=== PATIENT | female | born 1940 | race Two or more races ===

== ENCOUNTER 2022-08-08 05:37 | Observation (INO) ==
--- NOTE | 2022-07-06 16:23 | PAT Medication Instructions ---
Medication Instructions Date of Service July 06, 2022 Home Medications atorvastatin 20 mg tablet 20 mg PO QAM cholecalciferol (vitamin D3) 25 mcg (1,000 unit) tablet (Vitamin D3) 25 mcg PO QAM citalopram 10 mg tablet 10 mg PO QAM cyanocobalamin (vitamin B-12) 500 mcg tablet 500 mcg PO QAM docusate sodium 100 mg capsule (Stool Softener) 100 mg PO Q2D estradiol 0.01% (0.1 mg/gram) vaginal cream 1 appful vaginal Q2D fiber 1 cap PO WM 07/06/22 [History Confirmed 07/06/22] gabapentin 300 mg capsule 600 mg PO HS lactobacillus combination no.4 3 billion cell capsule (Probiotic) 3,000 mmu cells PO QAM lisinopril 10 mg tablet 10 mg PO QAM meloxicam 7.5 mg tablet (Mobic) 7.5 mg PO QAM ASK your surgeon for instructions meloxicam 7.5 mg tablet (Mobic) 7.5 mg PO QAM DO NOT take the morning of surgery cholecalciferol (vitamin D3) 25 mcg (1,000 unit) tablet (Vitamin D3) 25 mcg PO QAM cyanocobalamin (vitamin B-12) 500 mcg tablet 500 mcg PO QAM docusate sodium 100 mg capsule (Stool Softener) 100 mg PO Q2D estradiol 0.01% (0.1 mg/gram) vaginal cream 1 appful vaginal Q2D lactobacillus combination no.4 3 billion cell capsule (Probiotic) 3,000 mmu cells PO QAM lisinopril 10 mg tablet 10 mg PO QAM Take morning of surgery With a small sip of water, OTHERWISE NOTHING TO EAT OR DRINK AFTER MIDNIGHT: atorvastatin 20 mg tablet 20 mg PO QAM citalopram 10 mg tablet 10 mg PO QAM Take evening before surgery gabapentin 300 mg capsule 600 mg PO HS Other Notes If you have any questions please call us at [phone] or [phone] or [phone] or [phone]
--- NOTE | 2022-07-14 13:39 | History & Physical Report ---
Date of Service July 14, 2022 date of surgery: 08/08/22 Procedure: Right Total Knee Arthroplasty Surgeon: Mansoor Ley Assessment & Plan (1) Arthritis of right knee: Plan: Risks and benefits of procedure discussed in detail today, patient would like to proceed with a and Nephew patient matched Right total knee replacement at [facility] as scheduled. will obtain medical clearance from Dr Knapp prior to surgery as well as obtain PATs at [facility]. Will place on ASA 81mg po bid x 1 month post op, f/u 2 weeks post op for routine post-operative care and x-ray, sooner if having any problems. will make arrangements for HHPT at the time of discharge. At this point in time, has failed conservative measures and would like to proceed with surgical intervention. The risks and benefits have been discussed including, but not limited to, risk of infection, nerve injury, stiffness, loss of motion, failure to improve, etc. Reasonable outcomes and options of treatment were discussed. An explanation of appropriate alternatives to the procedure that may be advantageous were discussed and their risks and benefits, as well as the risks and benefits of not proceeding with treatment. I offered to answer any additional inquiries concerning the treatment involved. All the patient's questions were answered. The patient is agreeable, understanding of the treatment plan and alternatives, and wishes to proceed with the treatment plan. History of Present Illness Chief Complaint: Right knee pain Primary Care Provider: NO PCP Jasvir is a pleasant 82-year-old female who presents for preop evaluation prior to right total knee replacement. She has been having pain in this knee for many years now which is gradually worsened, is now affecting her daily activities. She tried oral anti-inflammatories and Tylenol without relief. She had previous viscosupplementation injections with mild relief. She rates her current pain as a 7 out of 10. She has complaints of limping instability and catching in her knee. X-rays reviewed with patient which show advanced generative change of the right knee, she is failed conservative measures like to proceed with a right total knee replacement Allergies Allergy/AdvReac Type Severity Reaction Status Date / Time Sulfa (Sulfonamide Allergy Mild Rash Verified 07/06/22 13:18 Antibiotics) latex Allergy MILD Verified 07/06/22 13:18 Home Medications Medication Instructions Recorded Confirmed Type atorvastatin 20 mg tablet 20 mg PO QAM 07/06/22 07/06/22 History cholecalciferol (vitamin D3) 25 25 mcg PO QAM 07/06/22 07/06/22 History mcg (1,000 unit) tablet (Vitamin D3) citalopram 10 mg tablet 10 mg PO QAM 07/06/22 07/06/22 History cyanocobalamin (vitamin B-12) 500 500 mcg PO QAM 07/06/22 07/06/22 History mcg tablet docusate sodium 100 mg capsule 100 mg PO Q2D 07/06/22 07/06/22 History (Stool Softener) estradiol 0.01% (0.1 mg/gram) 1 appful vaginal Q2D 07/06/22 07/06/22 History vaginal cream fiber 1 cap PO WM 07/06/22 07/06/22 History gabapentin 300 mg capsule 600 mg PO HS 07/06/22 07/06/22 History lactobacillus combination no.4 3 3,000 mmu cells PO QAM 07/06/22 07/06/22 History billion cell capsule (Probiotic) lisinopril 10 mg tablet 10 mg PO QAM 07/06/22 07/06/22 History meloxicam 7.5 mg tablet (Mobic) 7.5 mg PO QAM 07/06/22 07/06/22 History Past Med/Surg History Medical History Acid reflux Anxiety Carotid bruit noted by [facility] neurology-carotid duplex ordered Diverticulosis Fibromyalgia Hx SBO Hyperlipidemia Hypertension Lumbar disc disease Moderate tricuspid regurgitation Restless leg syndrome Sjogrens syndrome Surgical History History of anesthesia reaction ASPIRATED AFTER BOWEL RESECTION>REQUIRED INTUBATION FOR A COUPLE DAYS POST-OP History of cataract surgery RT/LEFT History of cholecystectomy History of colon resection X 2 *D/T ADHESIONS History of colonoscopy History of esophagogastroduodenoscopy (EGD) History of hysterectomy History of tonsillectomy and adenoidectomy History of tooth extraction Family History Other No family history of adverse response to anesthesia Social History Smoking Status: Never smoker Second Hand Exposure: Yes ( A CHILD); Hx Alcohol Use: No Preferred Language: Samoan Casey Saw Operator Required: No Beliefs That Will Affect Care: None Current Living Situation: Spouse Feels Safe at Home: Yes Assistive Devices: Glasses Review of Systems Review of Systems: All systems reviewed & are unremarkable except as noted in HPI & below Constitutional: no fever, no chills and no sweats Respiratory: no cough and no dyspnea Cardiovascular: no chest pain, no dyspnea and no orthopnea Gastrointestinal: no abdominal pain, no nausea and no vomiting Musculoskeletal: as per Subjective / HPI Physical Exam Physical Exam: HT: 5ft 1in WT: 58.5kg Constitutional: WD/WN, vitals as above no acute distress Respiratory: normal respiratory effort, lungs clear to auscultation no respiratory distress, no labored breathing and does not use accessory muscles Cardiovascular: RRR, no murmur, no edema Gastrointestinal (Abdomen): normal bowel sounds, soft, nontender, no hepatosplenomegaly Musculoskeletal: Knee: + knee abnormal to inspection (RIGHT KNEE), + effusion (+1 effusion), + limited ROM of knee (ROM 0/3/110), + knee ROM with crepitation, + joint line tenderness (medial joint line) and + Blu's sign positive; no deformity, no skin erythema, no ecchymosis, no valgus laxity, no varus laxity, anterior drawer test negative, Laura's sign negative and pivot shift test negative Results & Data Results & Data ([facility]) Diagnostic Findings Right Knee X-ray: Right knee series showing advanced degenerative changes to the right knee, narrowing of the medial compartment and patello-femoral joint with patellar spurring noted, findings showing joint space narrowing of the medial compartment and patello-femoral joint, osteophyte formation and subchondral sclerosis noted. overall varus alignment. no acute bony pathology noted.
--- NOTE | 2022-07-14 14:37 | Anesthesiology Consultation ---
Date of Service July 14, 2022 Assessment & Plan (1) Encounter for pre-operative examination: - will request carotid imaging from [facility]. Chart Review Chart Review: Pending: Refer to Additional Notes / Consult section and Patient seen in Pre Admission Testing Teaching & Discussion Pre-Anesthesia Teaching/Discussion Notes: Instructed NPO after midnight before surgery, except medications with 15 cc of water. Medication instructions provided according to the PAT guidelines. History Surgery Operation Date: 08/08/22 10:05 Proposed Procedures p Right Total Knee Arthroplasty - Mansoor Ley DO Height/Weight Height: 5 ft 1.75 in Weight: 60.4 kg Allergies Allergy/AdvReac Type Severity Reaction Status Date / Time Sulfa (Sulfonamide Allergy Mild Rash Verified 07/06/22 13:18 Antibiotics) latex Allergy MILD Verified 07/06/22 13:18 Medications Home Medications Medication Instructions Recorded Confirmed Last Taken atorvastatin 20 mg tablet 20 mg PO QAM 07/06/22 07/06/22 Unknown cholecalciferol (vitamin D3) 25 25 mcg PO QAM 07/06/22 07/06/22 Unknown mcg (1,000 unit) tablet (Vitamin D3) citalopram 10 mg tablet 10 mg PO QAM 07/06/22 07/06/22 Unknown cyanocobalamin (vitamin B-12) 500 500 mcg PO QAM 07/06/22 07/06/22 Unknown mcg tablet docusate sodium 100 mg capsule 100 mg PO Q2D 07/06/22 07/06/22 Unknown (Stool Softener) estradiol 0.01% (0.1 mg/gram) 1 appful vaginal Q2D 07/06/22 07/06/22 Unknown vaginal cream fiber 1 cap PO WM 07/06/22 07/06/22 Unknown gabapentin 300 mg capsule 600 mg PO HS 07/06/22 07/06/22 Unknown lactobacillus combination no.4 3 3,000 mmu cells PO QAM 07/06/22 07/06/22 Unkno wn billion cell capsule (Probiotic) lisinopril 10 mg tablet 10 mg PO QAM 07/06/22 07/06/22 Unknown meloxicam 7.5 mg tablet (Mobic) 7.5 mg PO QAM 07/06/22 07/06/22 Unknown Past Medical History Medical History (Updated 07/14/22 @ 15:12 by Radha Rachel PA-C) Acid reflux controlled, stable per pt Anxiety Carotid bruit noted by [facility] neurology-carotid duplex ordered Diverticulosis Fibromyalgia Hx SBO Hyperlipidemia Hypertension controlled, stable per pt; occasional white coat hypertension Lumbar disc disease Moderate tricuspid regurgitation Restless leg syndrome Sjogrens syndrome Patient denies h/o stroke, seizures, heart attack, heart failure, DM, blood clots or blood transfusions. Exercise / Class Metabolic Activity II 4-5 Yardwork/Stairs/Walk up hill (denies CP or SOB with 1 FOS) Past Family History Family History Other No family history of adverse response to anesthesia Past Surgical History Surgical History History of anesthesia reaction ASPIRATED AFTER BOWEL RESECTION>REQUIRED INTUBATION FOR A COUPLE DAYS POST-OP History of cataract surgery RT/LEFT History of cholecystectomy History of colon resection X 2 *D/T ADHESIONS History of colonoscopy History of esophagogastroduodenoscopy (EGD) History of hysterectomy History of tonsillectomy and adenoidectomy History of tooth extraction Past Anesthesia History No Family Hx of Anesthesia Complications and Other (aspiration- bowel resection- requiring intubation for several days post-op) History of PONV No Hx of PONV and No Hx of Motion Sickness Social History Smoking Status: Never smoker Do You Dip or Chew Tobacco: No Hx Alcohol Use: No substance use type: does not use Review of Systems Occasional snoring, denies witnessed apneas. Patient denies chest pain, shortness of breath, dyspnea on exertion, fever, chills, cough, wheezing, or palpitations. Physical Exam Vital Signs Vitals BP 184/74 manual. Pt states she feels fine, is quite stressed being in hospital for this appointment today, notes she also had caffeine recently. Patient rested with feet flat on floor x 15-20 minutes, repeat manual BP 168/68. Patient denies PENALOZA, visual changes, lightheadedness, dizziness, nausea, vomiting, numbness, weakness, chest discomfort, shortness of breath and her states she has been in her usual state throughout the day. P 59 TEMP 98.9 SP02 95% on RA RESP 17 Physical Full cervical extension range of motion without pain TMD 3.5 finger breadths Dentition: partials upper and lower, several caps; denies chipped or loose teeth, implants or bridges Lungs: normal respiratory effort. Clear throughout to auscultation, no adventitious breath sounds Cardiac: regular rate and rhythm, no murmurs noted Carotid arteries: negative bruit bilat Lab Results Anesthesia Preop Results Results Anesthesia Widget: WBC 7.00 K/ul (4.8-10.8) 07/14/22 Hgb 12.5 g/dl (12.0-16.0) 07/14/22 Hct 37.7 % (34.1-44.9) 07/14/22 Plt 201 K/uL (130-400) 07/14/22 Na 134 mmol/L (136-145) L 07/14/22 K 5.0 mmol/L (3.5-5.1) 07/14/22 Cl 98 mmol/L (98-107) 07/14/22 CO2 31 mmol/L (21-32) 07/14/22 BUN 13 mg/dl (6-23) 07/14/22 Creat 0.78 mg/dl (0.6-1.2) 07/14/22 Glucose Level 102 mg/dl (70-99(Fasting)) H 07/14/22 PT 10.9 Seconds (9.0-12.0) 07/14/22 PTT 27.0 Seconds (21.0-31.0) 07/14/22 INR 1.0 (0.9-1.1) 07/14/22 Urine Color Yellow 07/14/22 Urine Appearance Clear (Clear) 07/14/22 Urine pH 7.0 (4.5-7.5) 07/14/22 Urine Specific Fletcher 1.004 (1.000-1.030) 07/14/22 Urine Protein Negative (Negative) 07/14/22 Urine Glucose (UA) Negative (Negative) 07/14/22 Urine Ketones Negative (Negative) 07/14/22 Urine Blood Negative (Negative) 07/14/22 Urine Nitrite Negative (Negative) 07/14/22 Urine Bilirubin Negative (Negative) 07/14/22 Urine Urobilinogen Negative (Negative) 07/14/22 Urine Leukocyte Esterase Trace (Negative) H 07/14/22 Urine WBC (Auto) 1-5 /hpf (0-5) 07/14/22 Urine RBC (Auto) 0-4 /hpf (0-4) 07/14/22 Urine Hyaline Casts (Auto) 0 /lpf (0-5) 07/14/22 Urine Epithelial Cells (Auto) 0-5 /lpf (0-5) 07/14/22 Urine Bacteria (Auto) Negative (Negative) 07/14/22 Blood Type A Positive 07/14/22 Antibody Screen NEGATIVE 07/14/22 Testing Electrocardiogram Date: 07/14/22 Sinus bradycardia, rate 59 bpm Chest X-Ray Date: 07/14/22 Cardiomediastinal and hilar silhouettes are within normal limits. Mild biapical pleural-parenchymal scarring. No pneumothorax, pleural effusion, airspace consolidation or overt pulmonary edema. Surgical clips of the right upper quadrant abdomen. The bones appear grossly intact. IMPRESSION: No acute process. Stress Test Date: 08/01/18 Exercise MPHR Indeterminate for inducible ischemia COVID-19 Risk Screen Screening Information COVID-19 Screen Date: 07/14/22 Exposure 21 Days Family/Household +COVID Last 21 Days: No Exposure 10 Days Any COVID Exposure Last 10 Days: No Symptoms Last 10 Days Experienced COVID Sx Last 10 Days: No + COVID 0-90 Days COVID + in Last 0-90 Days: No Risk Plan COVID Risk Plan: No Risk Identified
[2022-08-08] MEDS ORDERED: GABAPENTIN 300 MG CAP PO SCH (06:00)
[2022-08-08] MEDS ORDERED: TRANEXAMIC ACID 1,000 MG **IV Pre-op IV SCH (06:00)
[2022-08-08] MEDS ORDERED: LR 500ML BOLUS, THEN 15ML/HR IV SCH (06:00)
[2022-08-08] MEDS ORDERED: METOCLOPRAMIDE HCL 10 MG TABLET PO SCH (06:00)
[2022-08-08] MEDS ORDERED: CeleBREX 200 MG CAP PO SCH (06:00)
[2022-08-08] MEDS ORDERED: ROPIVACAINE 0.5% HCL/PF 150 MG, BUPIVACAINE 0.75% MPF 20 ML, EPINEPHrine 30MG/30ML (OR ... INSTIL SCH (06:00)
[2022-08-08] MEDS ORDERED: ACETAMINOPHEN 500 MG TAB PO SCH (06:00)
[2022-08-08] MEDS ORDERED: TRANEXAMIC ACID 1,000 MG **IV Intra-op IV SCH (06:00)
[2022-08-08] MEDS ORDERED: FAMOTIDINE 20 MG TAB PO SCH (06:00)
[2022-08-08] MEDS ORDERED: dexAMETHasone 4 MG TAB PO SCH (06:00)
[2022-08-08] MEDS ORDERED: ceFAZolin 1000MG 1,000 MG/7.5 ML SYR IV SCH (06:00)
[2022-08-08] MEDS ORDERED: BUPIVACAINE 0.5 % 5 MG/1 ML PF 10ML VIAL ONE (06:27)
[2022-08-08] MEDS ORDERED: EPINEPHrine INJ 1 MG/ML AMP ONE (06:27)
[2022-08-08] MEDS ORDERED: ROPIVACAINE 0.5% 5 MG/ML 30 ML VIAL ONE (06:27)
[2022-08-08] MEDS ORDERED: PROPOFOL IV EMULSION 10 MG/ML 20 ML VIAL IV ONE (06:55)
[2022-08-08] MEDS ORDERED: LIDOCAINE 2% 20 MG/ML 5 ML SYR IV ONE (06:55)
[2022-08-08] MEDS ORDERED: fentaNYL citrate 100 MCG/2 ML VIAL ONE (06:56)
[2022-08-08] MEDS ORDERED: MIDAZOLAM HCL 1 MG/ML 2ML VIAL ONE ×2 (06:56→08:51)
[2022-08-08] MEDS ORDERED: PHENYLEPHRINE HCL 10 MG/ML VIAL ONE (07:23)
--- NOTE | 2022-08-08 07:23 | History & Physical Bridge Note ---
Date of Service August 08, 2022 History & Physical Bridge Note I have examined the patient, reviewed the History & Physical and in the interval since the performance of the History & Physical I have noted the following changes of clinical significance: no changes noted
[2022-08-08] MEDS ORDERED: ORTHO JOINT ANESTHETIC ONE (08:24)
[2022-08-08] MEDS ORDERED: ATROPINE SULFATE 0.1 MG/ML 10ML SYR IV PRN (08:45)
[2022-08-08] MEDS ORDERED: HYDROmorphone INJ 1 MG/ML SYRINGE IV PRN (08:45)
[2022-08-08] MEDS ORDERED: PROMETHAZINE HCL 12.5 MG in SODIUM CHLORIDE 0.9% 50 ML IV PRN (08:45)
[2022-08-08] MEDS ORDERED: ONDANSETRON INJ 2 MG/ML 2 ML VIAL IV PRN ×2 (08:45→11:48)
[2022-08-08] MEDS ORDERED: ePHEDrine sulfate 50 MG/ML AMP IV PRN (08:45)
[2022-08-08] MEDS ORDERED: fentaNYL citrate 100 MCG/2 ML VIAL IV PRN (08:45)
[2022-08-08] MEDS ORDERED: FLUMAZENIL 0.1 MG/1 ML 10 ML VIAL IV PRN (08:45)
[2022-08-08] MEDS ORDERED: NALOXONE HCL 0.4 MG/1 ML VIAL/CARP IV PRN ×2 (08:45→11:48)
[2022-08-08] MEDS ORDERED: LABETALOL HCL IV 5 MG/ML 20ML IV PRN (08:45)
--- NOTE | 2022-08-08 09:45 | Operative Report ---
Post Operative Report Pre & Post Diagnosis Operation Date: 08/08/22 08:25 Pre-Op Diagnosis: Tricompartment Osteoarthritis of Right Knee Post-Op Diagnosis: Tricompartment Osteoarthritis of Right Knee I identified the patient and participated in the time-out.: Yes Procedure Operation Date: 08/08/22 08:25 Actual Procedures p Right Total Knee Arthroplasty utilizing & Nephew journey 2 patient matched total knee arthroplasty size femur 3 right tibia 3 right insert 11 mm patella 29 oval (Right) - Mansoor Ley DO Surgeon Mansoor Ley DO Lorry Weigher Sathish TIAN Estimated Blood Loss 5 Findings Consistent with Post-Op Diagnosis Patient presents with severe end-stage tricompartmental degenerative joint disease right knee with [id number] eburnated subchondral [id number] with subchondral sclerosis marginal osteophytes moderate to large effusion Specimens Bone and cartilage Drains Medium bore Hemovac Anesthesia Type MAC Spinal Regional Complications none Disposition Accompanied Patient To Recovery: No Disposition: Recovery Room Indications Patient presents severe end-stage tricompartmental degenerative joint disease after failed attempted conservative management occluding physical therapy anti- inflammatories relative rest activity modification corticosteroid injection viscosupplementation above intraoperative findings were noted Description of Procedure After proper prepping and draping of the Right lower extremity anterior midline incision was made over the region of the extensor extensor mechanism after meticulous hemostasis was obtained and maintained in subcutaneous tissues a medial parapatellar incision was made The patella was subluxed lateralward the medial lateral gutter were cleaned from any hypertrophic synovitis and scar tissue of the distal femoral block was placed and the distal femoral osteotomy cut was made subsequently the chamfers anterior and posterior osteotomy cuts were made utilizing the 4-in-1 block the tibia was subsequently subluxed anteriorward medial and ateral meniscal remnants were excised in their entirety remnants of the anterior and posterior cruciate ligaments were excised in their entirety excellent exposure of the proximal tibia was obtained the tibial osteotomy guide was placed on the proximal tibial osteotomy cut was made once again the knee was irrigated with copious amounts of sterile saline solution the patella was subsequently everted lateralward thickened scar tissue around the patella was removed the patella was subsequently cut utilizing a freehand technique and was drilled prepared for final preparation and placement of patella socially flexion-extension gaps were checked and the equal and symmetric trials were placed to the appropriate femoral and tibial trials with poly-spacer being placed for equal flexion and extension gaps and full range of motion including extension to 0 and flexion to 140 the trial components after having been taken to recovery range of motion was subsequently removed meticulous hemostasis was obtained and maintained subsequently a knee block injection of binh int cocktail including ropivacaine 0.5% 150 mg. Bupivacaine 0.5% epinephrine 1- 200,030 mL's toradol 30 mg dexamethasone 4 mg ketamine 10 mg clonidine 100 micrograms normal saline solution 30 mg was infiltrated into the soft tissues of the posterior knee medial lateral gutters and periosteal synovium special attention was paid to protect neurovascular structures at all times subsequently trial components having been removed the knee was irrigated with sterile saline solution. debris was removed the proximal tibia was subsequently prepared and was made ready for the placement of the tibial component tibial component was also cemented and tamped into position the femoral component was subsequently placed and cemented in the position the patellar component was subsequently cemented in position because hemostasis once again obtained and maintained wound having been thoroughly irrigated with debridement and debridement lavage was performed as well as a medial parapatellar incision closed with #1 Vicryl in interrupted fashion subcutaneous was closed with #2 Vicryl skin was closed with skin clips. PA-C was necessary for prepping and drapping as well as wound closure of deep fascia Sub cutaneous tissue and skin and was necessary for the case. A sterile compressive dressing was placed patient was taken to recovery in stable condition of report dictated by Av I attest to the content of the Intraoperative Record and any orders documented therein. Any exceptions are noted below.Due to the complex nature of the procedure, the entire surgery was performed with the operational assistance of Sathish TIAN. The cement tester assistant, under direct supervision, was involved in the actual performance of all aspects of the surgical procedure including hemostasis, tissue retraction and incision, instrument management, patient positioning, and wound closure. I attest to the content of the Intraoperative Record and any orders documented therein. Any exceptions are noted below.
--- NOTE | 2022-08-08 10:49 | XRay Report ---
RIGHT KNEE 2 VIEWS History: Right total knee arthroplasty. Degenerative arthritis. Postop. FINDINGS: The patient is status post a right total knee arthroplasty. The hardware is intact. No frac ture or dislocation. Surgical drains are in place. IMPRESSION: Right total knee arthroplasty. No evidence for hardware complication. ACT 112: Negative or not required by law. Electronically signed by: Kiran Dailey M.D. 08/08/2022 10:47 AM
--- NOTE | 2022-08-08 11:29 | Anesthesiology Progress Note ---
Date of Service August 08, 2022 Anesthesia Post Procedure Vital Signs Vital Signs: Temp Pulse Pulse Resp BP Pulse Ox O2 Del Method 08/08/22 11:00 75 12 139/50 L 90 Room Air 08/08/22 11:10 70 12 140/56 L 92 Room Air 08/08/22 10:50 72 18 139/64 93 Room Air 08/08/22 10:40 75 14 141/57 H 95 Room Air 08/08/22 10:30 75 15 138/55 L 100 Oxymask 08/08/22 10:21 36.5 C 79 17 142/55 H 97 Oxymask 08/08/22 06:02 36.6 C 69 20 197/80 H 97 Room Air O2 Flow Rate 08/08/22 11:00 08/08/22 11:10 08/08/22 10:50 08/08/22 10:40 08/08/22 10:30 5 08/08/22 10:21 5 08/08/22 06:02 Transfer of Care Handoff Completed per policy Notes Mental Status: alert / awake / arousable Patient Amnestic to Procedure: Yes Nausea / Vomiting: adequately controlled Pain: adequately controlled Airway Patency, RR, SpO2: stable & adequate BP & HR: stable & adequate Hydration State: stable & adequate Neuraxial Anesthesia: was administered and sensory block is resolving Anesthetic Complications: no major complications apparent
[2022-08-08] MEDS ORDERED: diphenhydrAMINE 50 MG/ML VIAL IV PRN (11:48)
[2022-08-08] MEDS ORDERED: HYDROmorphone INJ 0.5 MG/0.5 ML SYR IV PRN (11:48)
[2022-08-08] MEDS ORDERED: SODIUM CHLORIDE 0.9% 1000ML 1,000 ML IV SCH (11:48)
[2022-08-08] MEDS ORDERED: MAGNESIUM HYDROXIDE SUSP 30 ML UDC PO PRN (11:48)
[2022-08-08] MEDS ORDERED: bisacodyL 10 MG SUPP PR PRN (11:48)
--- NOTE | 2022-08-08 14:08 | Consultation ---
Date of Consultation August 08, 2022 Assessment & Plan (1) S/P right knee arthroscopy: (2) HTN (hypertension): (3) HLD (hyperlipidemia): (4) Sjogren syndrome with peripheral nervous system involvement: (5) Depression: Plan Ms. Carranza is an 82 year old female that presented to [place] for an elective right total knee arthroscopy after failed conservative management as an outpatient and underwent surgery by Dr. Ley. S/P Right Knee Arthroscopy: POD# 0 s/p total right knee arthroscopy with Dr. Ley. PICA single-use NPWT in place Accordian drain in place with serousanguenous drainage EBL 5 mL intraoperative Per ortho for pain control, wound care, anticoagulation and activities. Monitor CBC; baseline Hgb 12.5 ISB PT/OT when appropriate HTN: Stable; continue Lisinopril HLD: Stable; continue atorvastatin. Trend lipid panel outpatient Sjorgen syndrome with peripheral nervous system involvement: Has peripheral neuropathy with this Takes Gabapentin; continue Depression: Stable; Continue citalopram Degenerative Disc Disease: Takes Mobic and Tylenol PRN chronic; continue Disposition: PCP: Dr. Knapp Code: Full VTE Prophylaxis: Teds/SCDs Point of Contact: John: [phone] I personally was able to review all current laboratory work and diagnostic images obtained in the ED. Additionally, I was able to review the patients past medication reconciliation and history with direct visualization in the patients chart. This patient was collaborated with Dr. Kilgore. Please see his addendum for further information. Thank you kindly for consulting the [facility]. We are available for assistance 21/05 via [employer]. Supervising Physician Co-Signing Physician Notes Pt is a 82 y/o F with hx of HTN, HLD, Sjorgrens syndrome, neuropathy, Depression consulted for medical co-management. Pt is currently admitted for R TKA. PE: NAd, well developed Lungs: CTA, no wheezing or crackles Heart: normal S1/S2, with systolic murmur Abd: ND, NT, soft MSK: R knee bandaged, able to move R ankle with good capillary refill of the R toes Psych: AAOx3, normal affect A/P: S/p R TKA: -POD #0 - recovering well -pain management per ortho team -VSS - PT/OT - trend CBC and BMP HTN/HLD/Peripheral neuropathy: -continue home medications Agree with A/P EUN Brooks History of Present Illness Requesting Physician: Dr. Ley Reason for Consultation: Post-operative Medical Management Attending Physician: Mansoor Ley DO History of Present Illness Ms. Carranza is an 82 year old female that presented to the [facility] under the care of Dr. Ley for an elective right total knee arthroscopy after failed conservative management as an outpatient. Patient has an additional PMH that includes HLD, HTN, depression, fibromyalgia, RLS, Sjorgen Syndrome, lumbar disc degeneration. Patient is sitting upright in her bed in no apparent distress. She is AAOx4 and able to follow commands. She denies PENALOZA, dizziness, SOB, CP, palpitations, N/V/D. She was able to tolerate a regular diet while in PACU. [facility] Hospitalists were consulted for post operative management. Please see A/P for further details. Thank you kindly for consulting the [facility]. Allergies Allergy/AdvReac Type Severity Reaction Status Date / Time Sulfa (Sulfonamide Allergy Mild Rash Verified 08/08/22 05:57 Antibiotics) latex Allergy MILD Verified 08/08/22 05:57 Home Medications Medication Instructions Recorded Confirmed Type atorvastatin 20 mg tablet 20 mg PO QAM 07/06/22 08/08/22 History cholecalciferol (vitamin D3) 25 25 mcg PO QAM 07/06/22 08/08/22 History mcg (1,000 unit) tablet (Vitamin D3) citalopram 10 mg tablet 10 mg PO QAM 07/06/22 08/08/22 History cyanocobalamin (vitamin B-12) 500 500 mcg PO QAM 07/06/22 08/08/22 History mcg tablet docusate sodium 100 mg capsule 100 mg PO Q2D 07/06/22 08/08/22 History (Stool Softener) estradiol 0.01% (0.1 mg/gram) 1 appful vaginal Q2D 07/06/22 08/08/22 History vaginal cream fiber 1 cap PO WM 07/06/22 08/08/22 History gabapentin 300 mg capsule 600 mg PO HS 07/06/22 08/08/22 History lactobacillus combination no.4 3 3,000 mmu cells PO QAM 07/06/22 08/08/22 History billion cell capsule (Probiotic) lisinopril 10 mg tablet 10 mg PO QAM 07/06/22 08/08/22 History meloxicam 7.5 mg tablet (Mobic) 7.5 mg PO QAM 07/06/22 08/08/22 History acetaminophen 500 mg capsule 1,000 mg PO Q8H pain 14 days #84 08/08/22 Rx caps aspirin 81 mg tablet,delayed 81 mg PO BID 30 days #60 tabs 08/08/22 Rx release (Ecotrin Low Strength) polyethylene glycol 3350 17 gram 17 g PO DAILY PRN constipation #5 08/08/22 Rx oral powder packet (Miralax) ea Patient History Medical History (Updated 08/08/22 @ 14:48 by EUN Morgan) Acid reflux controlled, stable per pt Anxiety Carotid bruit noted by [facility] neurology-carotid duplex ordered Depression Diverticulosis Fibromyalgia HLD (hyperlipidemia) HTN (hypertension) Hx SBO Hyperlipidemia Hypertension controlled, stable per pt; occasional white coat hypertension Lumbar disc disease Moderate tricuspid regurgitation Restless leg syndrome Sjogren syndrome with peripheral nervous system involvement Sjogrens syndrome Surgical History (Updated 08/08/22 @ 14:41 by EUN Morgan) History of anesthesia reaction ASPIRATED AFTER BOWEL RESECTION>REQUIRED INTUBATION FOR A COUPLE DAYS POST-OP History of cataract surgery RT/LEFT History of cholecystectomy History of colon resection X 2 *D/T ADHESIONS History of colonoscopy History of esophagogastroduodenoscopy (EGD) History of hysterectomy History of tonsillectomy and adenoidectomy History of tooth extraction S/P right knee arthroscopy Family History Other No family history of adverse response to anesthesia Social History Smoking Status: Never smoker Second Hand Exposure: Yes ( A CHILD); Do You Dip or Chew Tobacco: No; Hx Alcohol Use: No Preferred Language: Occitan Assistant Professor Of Religion Required: No Beliefs That Will Affect Care: None Current Living Situation: Spouse Feels Safe at Home: Yes Safety Concerns: Feels Safe At This Time Assistive Devices: Glasses Assistive Devices Comment: PARTIAL UPPER/LOWER PLATES Review of Systems Review of Systems: Neuro: (-) Falls, trauma, slurred speech HEENT: (-) PENALOZA, dizziness, dysphagia, visual or auditory changes CV: (-) CP, palpitations, swelling Resp: (-) SOB GI: (-) appetite changes, N/V/D, bowel changes : (-) urinary changes Skin: (-) rashes Psych: (-) anxiety, depression Physical Exam Physical Exam: Neuro: AAOx4, PERRLA, no aphagia, memory changes, CNII-XII grossly intact HEENT: head normocephalic, moist mucus membranes CV: S1/S2, (-) M/G/R, (-) edema, cap refill < 3 seconds Resp: Lungs CTA in all cummins. On RA GI: Abdomen S/NT/ND, Ax4 bowel sounds, (-) CVA tenderness Musculoskeletal: 5/5 B/L UE strength, 5/5 B/L LE strength. Right YOLANDA drain and accordion drain Skin: (-) rashes , (-) erythema. Psych: euthymic mood Results & Data ([facility]) Vital Signs (Past 12 Hours) Vital Signs Temp Pulse Pulse Resp BP Pulse Ox O2 Del Method 08/08/22 12:30 67 14 136/63 97 Room Air 08/08/22 12:20 65 14 122/59 L 96 Room Air 08/08/22 11:50 71 19 126/54 L 96 Room Air 08/08/22 11:00 75 12 139/50 L 90 Room Air 08/08/22 11:20 36.7 C 97 H 24 136/56 L 97 Room Air 08/08/22 11:10 70 12 140/56 L 92 Room Air 08/08/22 10:50 72 18 139/64 93 Room Air 08/08/22 10:40 75 14 141/57 H 95 Room Air 08/08/22 10:30 75 15 138/55 L 100 Oxymask 08/08/22 10:21 36.5 C 79 17 142/55 H 97 Oxymask 08/08/22 06:02 36.6 C 69 20 197/80 H 97 Room Air O2 Flow Rate 08/08/22 12:30 08/08/22 12:20 08/08/22 11:50 08/08/22 11:00 08/08/22 11:20 08/08/22 11:10 08/08/22 10:50 08/08/22 10:40 08/08/22 10:30 5 08/08/22 10:21 5 08/08/22 06:02
[2022-08-08] MEDS: ACETAMINOPHEN 500 MG TAB PO SCH ×2 (14:44→20:48)
[2022-08-08] MEDS: ceFAZolin 1000MG 1,000 MG/7.5 ML SYR IV SCH (18:34)
[2022-08-08] MEDS: GABAPENTIN 300 MG CAP PO SCH (20:49)
[2022-08-08] MEDS: oxyCODONE HCL IR 5 MG TAB (IMMEDIATE RELEASE) PO PRN (20:49)
[2022-08-08] MEDS: ASPIRIN 81 MG ECTAB PO SCH (20:49)
[2022-08-08] MEDS: SENNA 8.6 MG TAB PO SCH (20:50)
[2022-08-08] MEDS: DOCUSATE SODIUM 100 MG CAP PO SCH (20:53)
[2022-08-09] MEDS: ceFAZolin 1000MG 1,000 MG/7.5 ML SYR IV SCH (02:14)
[2022-08-09] MEDS: oxyCODONE HCL IR 5 MG TAB (IMMEDIATE RELEASE) PO PRN ×4 (02:16→22:42)
[2022-08-09] MEDS: ACETAMINOPHEN 500 MG TAB PO SCH ×3 (05:52→22:42)
[2022-08-09 06:05] LABS: Hemoglobin 11.2 g/dl (12.0-16.0); Mean Corpuscular Hemoglobin 30.7 pg (25.0-34.0); Mean Corpuscular Hgb Conc 33.9 g/dL (32.0-36.0); Mean Corpuscular Volume 90.4 fL (80.0-100.0); Mean Platelet Volume 10.1 fL (9.4-12.3); Platelet Count 221 K/uL (130-400); RDW Coefficient of Variation 12.6 % (11.5-14.5); RDW Standard Deviation 41.8 fL (36.4-46.3); Red Blood Count 3.65 M/uL (3.93-5.22); White Blood Count 17.69 K/ul (4.8-10.8)
[2022-08-09 06:39] LABS: BUN Creatinine Ratio 19.8 (10-20); Calcium 9.1 mg/dl (8.5-10.1); Creatinine Clr Calc Pharmacy 37.9 ml/min; Est GFR (African American) 68.6 ml/min; Est GFR (Non-African American) 59.2 ml/min; Potassium 4.3 mmol/L (3.5-5.1)
[2022-08-09] MEDS: ASPIRIN 81 MG ECTAB PO SCH ×2 (08:20→19:47)
[2022-08-09] MEDS: MULTIVITAMIN TAB PO SCH (08:21)
[2022-08-09] MEDS: ATORVASTATIN 20 MG TAB PO SCH (08:21)
[2022-08-09] MEDS: CITALOPRAM 20 MG TAB PO SCH (08:21)
[2022-08-09] MEDS: CHOLECALCIFEROL 1,000 UNITS 25 MCG TAB PO SCH (08:21)
[2022-08-09] MEDS: CYANOCOBALAMIN (B-12) 500 MCG TABLET PO SCH (08:21)
[2022-08-09] MEDS: ADVANCED PROBIOTIC 1250 MG CAPSULE PO SCH (08:21)
[2022-08-09] MEDS: DOCUSATE SODIUM 100 MG CAP PO SCH ×2 (08:26→19:49)
[2022-08-09] MEDS ORDERED: lisinopril 10 MG TAB PO SCH (09:00)
--- NOTE | 2022-08-09 09:03 | Orthopedic Progress Note ---
Date of Service August 09, 2022 Assessment & Plan (1) Arthritis of right knee: Plan: Postop day 1 status post right total knee arthroplasty PT/OT protocols. Weightbearing as tolerated. DVT prophylaxis-aspirin p.o. twice daily, Lillian, GEORGES villaseñor. Pain management as written. Leukocytosis-patient is currently asymptomatic. Likely secondary to preoperative steroids and or surgical stress. DC planning-patient is planning for home health services upon discharge. We will see how she progresses today with her PT and OT. If she is maintaining good pain control as well, plan for possible discharge to home today. Admission and Anticipated Discharge Date Admission Date: August 08, 2022 Subjective Postop day 1 Patient is sitting in her chair at the bedside. She is eating breakfast. She feels well today. Pain is controlled. Denies shortness of breath, chest pain, lightheadedness. Physical Exam Physical Exam: Dressings are clean, dry, and intact. Calves are soft and nontender. Neurovascular is intact. Toes are mobile. She has good christal siflexion and plantarflexion of the right foot. Hemovac drainage was 125 mL from the previous shift. Results & Data ([facility]) Vital Signs (Past 12 Hours) Vital Signs Temp Pulse Pulse Resp BP BP Pulse Ox 08/09/22 07:44 58 L 20 146/62 H 94 08/09/22 03:31 36.4 C L 67 16 117/56 L 94 08/08/22 21:07 36.5 C 85 20 141/72 H 98 O2 Del Method 08/09/22 07:44 Room Air 08/09/22 03:31 08/08/22 21:07 Room Air Laboratory Results Laboratory Results WBC 17.69 K/ul (4.8-10.8) H 08/09/22 05:54 RBC 3.65 M/uL (3.93-5.22) L 08/09/22 05:54 Hgb 11.2 g/dl (12.0-16.0) L 08/09/22 05:54 Hct 33.0 % (34.1-44.9) L 08/09/22 05:54 MCV 90.4 fL (80.0-100.0) 08/09/22 05:54 MCH 30.7 pg (25.0-34.0) 08/09/22 05:54 MCHC 33.9 g/dL (32.0-36.0) 08/09/22 05:54 RDW Std Deviation 41.8 fL (36.4-46.3) 08/09/22 05:54 RDW Coeff of Christie 12.6 % (11.5-14.5) 08/09/22 05:54 Plt Count 221 K/uL (130-400) 08/09/22 05:54 MPV 10.1 fL (9.4-12.3) 08/09/22 05:54 Sodium 135 mmol/L (136-145) L 08/09/22 05:54 Potassium 4.3 mmol/L (3.5-5.1) 08/09/22 05:54 Chloride 102 mmol/L (98-107) 08/09/22 05:54 Carbon Dioxide 29 mmol/L (21-32) 08/09/22 05:54 Anion Gap 4 (3-11) 08/09/22 05:54 BUN 18 mg/dl (6-23) 08/09/22 05:54 Creatinine 0.91 mg/dl (0.6-1.2) 08/09/22 05:54 Est Cr Clr Drug Dosing 37.9 ml/min 08/09/22 05:54 Est GFR ( Amer) 68.6 ml/min 08/09/22 05:54 Est GFR (Non-Af Amer) 59.2 ml/min 08/09/22 05:54 BUN/Creatinine Ratio 19.8 (10-20) 08/09/22 05:54 Glucose 124 mg/dl (70-99(Fasting)) H 08/09/22 05:54 Calcium 9.1 mg/dl (8.5-10.1) 08/09/22 05:54 SARS-CoV-2, RNA, NAAT NEGATIVE (NEGATIVE) 08/08/22 05:45 Impressions Knee X-Ray 08/08/22 10:28 RIGHT KNEE 2 VIEWS History: Right total knee arthroplasty. Degenerative arthritis. Postop. FINDINGS: The patient is status post a right total knee arthroplasty. The hardware is intact. No fracture or dislocation. Surgical drains are in place. IMPRESSION: Right total knee arthroplasty. No evidence for hardware complication. ACT 112: Negative or not required by law. Electronically signed by: Kiran Dailey M.D. 08/08/2022 10:47 AM
--- NOTE | 2022-08-09 12:03 | Hospitalist Progress Note ---
Date of Service August 09, 2022 Assessment & Plan (1) S/P right knee arthroscopy: (2) HTN (hypertension): (3) HLD (hyperlipidemia): (4) Sjogren syndrome with peripheral nervous system involvement: (5) Depression: Plan Ms. Carranza is an 82 year old female that presented to [place] for an elective right total knee arthroscopy after failed conservative management as an outpatient and underwent surgery by Dr. Ley. S/P Right Knee Arthroscopy: S/P day #1 total right knee arthroscopy performed by Dr. Ley. No postop complication Pain management as per ortho Continue PT/OT Hgb 11.2 today, baseline about 12.5 continue incentive spirometry Fall precaution HTN: Continue Lisinopril stable HLD: Continue atorvastatin. Leukocytosis WBC 17k Mostly related to steroid No sign infection continue monitor Sjorgen syndrome with peripheral nervous system involvement: Has peripheral neuropathy with this Continue Gabapentin Depression: Continue citalopram Stable Degenerative Disc Disease: Continue Mobic and Tylenol PRN Disposition: PCP: Dr. Knapp Code: Full VTE Prophylaxis: Teds/SCDs Point of Contact: John: [phone] Thank you kindly for consulting the [facility]. We are available for assistance 21/05 via [employer]. Admission and Anticipated Discharge Date Admission Date: August 08, 2022 Subjective Pt was seen and examined for postop follow up Lying in bed with no acute distress Pt said that she walked with therapy early She said that she felt a slight dizzy during therapy and BP was in the 80's systolic Denies any chest pain, palpitation, dizziness and SOB Review of Systems Review of Systems: All systems reviewed & are unremarkable except as noted in Subjective Physical Exam Physical Exam: General- No acute distress Head- atraumatic Eyes- PERRL, EOMI, ENT- oropharynx clear Neck- supple, no JVD Lungs- clear to auscultation Heart- regular rhythm; +murmur Abdomen- normal bowel sounds, soft, nontender Extremities- no calf tenderness, +hemovac in Right knee Neuro- alert, oriented x 3; PERRL, EOMI; no facial palsy; no dysarthria Skin- warm & dry Results & Data Results & Data ([facility]) Vital Signs (Past 12 Hours) Vital Signs Temp Pulse Pulse Resp BP BP Pulse Ox 08/09/22 11:19 36.3 C L 62 16 122/64 98 08/09/22 07:44 58 L 20 146/62 H 94 08/09/22 03:31 36.4 C L 67 16 117/56 L 94 O2 Del Method 08/09/22 11:19 Room Air 08/09/22 07:44 Room Air 08/09/22 03:31
[2022-08-09] MEDS ORDERED: SODIUM CHLORIDE 0.9% 500 ML IV SCH (13:30)
[2022-08-09] MEDS ORDERED: SODIUM CHLORIDE 0.9% 1000ML 1,000 ML IV SCH (14:30)
[2022-08-09] MEDS: GABAPENTIN 300 MG CAP PO SCH (19:46)
[2022-08-09] MEDS: SENNA 8.6 MG TAB PO SCH (19:47)
[2022-08-10] MEDS: oxyCODONE HCL IR 5 MG TAB (IMMEDIATE RELEASE) PO PRN ×2 (04:47→08:43)
[2022-08-10] MEDS: ACETAMINOPHEN 500 MG TAB PO SCH ×2 (04:47→13:12)
[2022-08-10 06:00] LABS: Hematocrit (blood only) 26.2 % (34.1-44.9); Mean Corpuscular Hemoglobin 30.7 pg (25.0-34.0); Mean Corpuscular Hgb Conc 34.4 g/dL (32.0-36.0); Mean Corpuscular Volume 89.4 fL (80.0-100.0); Mean Platelet Volume 10.8 fL (9.4-12.3); Platelet Count 161 K/uL (130-400); RDW Coefficient of Variation 12.9 % (11.5-14.5); RDW Standard Deviation 42.4 fL (36.4-46.3); Red Blood Count 2.93 M/uL (3.93-5.22); White Blood Count 9.12 K/ul (4.8-10.8)
[2022-08-10 06:24] LABS: BUN Creatinine Ratio 22.2 (10-20); Creatinine Clr Calc Pharmacy 54.8 ml/min; Est GFR (African American) 97.5 ml/min; Est GFR (Non-African American) 84.1 ml/min; Potassium 3.9 mmol/L (3.5-5.1)
--- NOTE | 2022-08-10 08:05 | Orthopedic Progress Note ---
Date of Service August 10, 2022 Assessment & Plan (1) Arthritis of right knee: Plan: Postop day 1 status post right total knee arthroplasty PT/OT protocols. Weightbearing as tolerated. DVT prophylaxis-aspirin p.o. twice daily, SCDs, GEORGES villaseñor. Pain management as written. Leukocytosis-patient is currently asymptomatic. RESOLVED Mild hyponatremia Patient with lightheadedness and dizziness with ambulation yesterday with noted drop in her blood pressure and pulse. Discharge was held and hospitalist service restarted some fluids and also held her lisinopril. We will see how she progresses with her therapy today and how she tolerates. If she is without any lightheadedness etc. we will likely plan on her discharge later today. DC planning-patient is planning for home health services upon discharge. Admission and Anticipated Discharge Date Admission Date: August 08, 2022 Subjective Postop day 2 Patient sitting up in bed awake and alert. No complaints this morning. Feels well. Denies shortness of breath, chest pain, lightheadedness. Physical Exam Physical Exam: Shakila dressing is clean, dry, and intact. Functioning well. Hemovac has been removed. Mild knee swelling consistent with surgery. Calves are soft and nontender. Neurovascular is intact. Toes are mobile. Results & Data ([facility]) Vital Signs (Past 12 Hours) Vital Signs Temp Pulse Pulse Resp BP Pulse Ox O2 Del Method 08/10/22 07:32 36.7 C 65 18 160/53 H 96 Room Air 08/09/22 21:54 36.8 C 64 16 150/69 H 94 Room Air Laboratory Results 08/10/22 08/10/22 Range/Units 05:20 05:20 WBC 9.12 (4.8-10.8) K/ul RBC 2.93 L (3.93-5.22) M/uL Hgb 9.0 L (12.0-16.0) g/dl Hct 26.2 L (34.1-44.9) % MCV 89.4 (80.0-100.0) fL MCH 30.7 (25.0-34.0) pg MCHC 34.4 (32.0-36.0) g/dL RDW Std Deviation 42.4 (36.4-46.3) fL RDW Coeff of Christie 12.9 (11.5-14.5) % Plt Count 161 (130-400) K/uL MPV 10.8 (9.4-12.3) fL Sodium 132 L (136-145) mmol/L Potassium 3.9 (3.5-5.1) mmol/L Chloride 101 (98-107) mmol/L Carbon Dioxide 26 (21-32) mmol/L Anion Gap 5 (3-11) BUN 14 (6-23) mg/dl Creatinine 0.63 (0.6-1.2) mg/dl Est Cr Clr Drug Dosing 54.8 ml/min Est GFR ( Amer) 97.5 ml/min Est GFR (Non-Af Amer) 84.1 ml/min BUN/Creatinine Ratio 22.2 H (10-20) Glucose 111 H (70-99(Fasting)) mg/dl Calcium 8.0 L (8.5-10.1) mg/dl
[2022-08-10] MEDS: DOCUSATE SODIUM 100 MG CAP PO SCH (08:39)
[2022-08-10] MEDS: CYANOCOBALAMIN (B-12) 500 MCG TABLET PO SCH (08:40)
[2022-08-10] MEDS: MULTIVITAMIN TAB PO SCH (08:40)
[2022-08-10] MEDS: ADVANCED PROBIOTIC 1250 MG CAPSULE PO SCH (08:40)
[2022-08-10] MEDS: ASPIRIN 81 MG ECTAB PO SCH (08:40)
[2022-08-10] MEDS: CHOLECALCIFEROL 1,000 UNITS 25 MCG TAB PO SCH (08:40)
[2022-08-10] MEDS: CITALOPRAM 20 MG TAB PO SCH (08:40)
[2022-08-10] MEDS: ATORVASTATIN 20 MG TAB PO SCH (08:40)
--- NOTE | 2022-08-15 13:01 | Discharge Summary ---
Date of Service August 15, 2022 Admission HPI Per Admitting Provider Jasvir is a pleasant 82-year-old female who presents for preop evaluation prior to right total knee replacement. She has been having pain in this knee for many years now which is gradually worsened, is now affecting her daily activities. She tried oral anti-inflammatories and Tylenol without relief. She had previous viscosupplementation injections with mild relief. She rates her current pain as a 7 out of 10. She has complaints of limping instability and catching in her knee. X-rays reviewed with patient which show advanced generative change of the right knee, she is failed conservative measures like to proceed with a right total knee replacement Admission Exam Per Admitting Provider Physical Exam: HT: 5ft 1in WT: 58.5kg Constitutional: WD/WN, vitals as above no acute distress Respiratory: normal respiratory effort, lungs clear to auscultation no respiratory distress, no labored breathing and does not use accessory muscles Cardiovascular: RRR, no murmur, no edema Gastrointestinal (Abdomen): normal bowel sounds, soft, nontender, no hepatosplenomegaly Musculoskeletal: Knee: + knee abnormal to inspection (RIGHT KNEE), + effusion (+1 effusion), + limited ROM of knee (ROM 0/3/110), + knee ROM with crepitation, + joint line tenderness (medial joint line) and + Blu's sign positive; no deformity, no skin erythema, no ecchymosis, no valgus laxity, no varus laxity, anterior drawer test negative, Laura's sign negative and pivot shift test negative Principal Diagnosis Osteoarthritis right knee Discharge Data Allergies Allergy/AdvReac Type Severity Reaction Status Date / Time Sulfa (Sulfonamide Allergy Mild Rash Verified 08/08/22 05:57 Antibiotics) latex Allergy MILD Verified 08/08/22 05:57 Consultations 08/03/22 11:36 Consult Hospitalist Routine Procedures Performed Operation Date: 08/08/22 08:25 Actual Procedures p Right Total Knee Arthroplasty(Right) - Mansoor Ley DO Ordered Studies 08/08/22 05:00 US - OR guided needle placemen Routine Hospital Course (1) Arthritis of right knee: Patient was admitted on the above-noted date and had the above-noted surgery performed which she tolerated well.On her first postoperative day, she was sitting in her chair at the bedside. She was eating breakfast. She felt well. Pain was controlled. Dressings were clean, dry, and intact. Calves soft nontender. Neurovascular intact. Hemoglobin was 11.2. She was started on her PT and OT protocols; DVT prophylaxis, and pain management. Patient was progressing with her first physical therapy session however near the end of the session she began having some lightheadedness. She was placed back into her chair at the bedside and her blood pressure was noted to be 85/30 and pulse [facility] ,started her on IV fluids. By her second postoperative day, she was up in bed awake and alert. No complaints. Feeling well. Yolanda dressing was intact and dry. Calves were soft and nontender. Neurovascular intact. Patient was continued on her PT and OT protocols of which she progressed well. She had no lightheadedness or dizziness during her ambulation. She felt she was feeling well and was ready to go home. [facility] and [facility]. Patient notably had leukocytosis on postop day 1 which resolved over into postop day 2. This was likely secondary to preoperative steroids and or surgical stress. Patient was discharged to home then on 08/10/2022. For further review please see chart lab and x-ray data as per chart. Total Time Total Time Spent Total Time Spent (In Minutes): 5 Discharge Plan Discharge Items Patient Disposition: Home - Home Health Services Reason For Visit: Tricompartment Osteoarthritis of Right Knee Discharge Diagnosis: Osteoarthritis right knee Activity: Per Instructions section Weightbearing: Right weightbearing Weightbearing Comment: As tolerated with walker Non-emergency contact: Surgeon Call non-emergency contact if: you have any medication questions, your pain is not controlled, your temperature is above 101.5, your wound has increased redness and your wound has increased drainage Follow-up/Referrals: Mansoor Ley DO [Surgeon] - (Follow-up with Dr. Ley in 2 weeks from the day of your surgery for your first postoperative visit.) Too Knapp MD [Primary Care Provider] - Diet: Regular Addtl Attending Provider Instructions: ACTIVITY RECOMMENDATIONS: SELF CARE INSTRUCTIONS AFTER TOTAL KNEE REPLACEMENT A. You may need to continue a physical therapy program after discharge from the hospital. There are several options available to you. Your doctor will assist you in selecting the best one for you. 1. An out-patient facility 2 to 3 times a week for therapy or home therapy. 2. Continue working on all exercises taught to you in the hospital. Your goals should be to increase bending of your knee to 90 degrees and beyond and to fully straighten your knee. B. You may progress at your own pace from walking with a walker or crutches to a cane; then to no assistive devices. C. Make walking a part of your daily routine. Be up as much as comfortable with rest periods throughout the day. Rest with leg elevation is very important. Use the ice wrap frequently for the first 3-4 weeks. D. There are no restrictions on activities. You may ride in a car, shop, participate in administrative receptionist and all social activities. E. Wear the long elastic stockings (GEORGES hose) 20 hours a day for 2 weeks after surgery. They can be removed several times a day for laundering and for a bath. F. You may shower, no tub baths until cleared by your doctor. SPECIAL CARE INSTRUCTIONS: VERY IMPORTANT TO READ AND REVIEW A. There are a few signs you need to watch for after you are home. Call [facility] if you notice any of the followin. Increased severe knee pain. Some pain is expected especially when you exercise. 2. Increased swelling in your leg or knee; pain or swelling of the calf muscle in either lower leg. 3. Any fluid drainage from the incision. 4. Shortness of breath or chest pain. B. Please call [facility] at if you have any concerns or questions about your operation or recovery. The doctor or his nurse will return your call promptly. C. You must take antibiotics before dental work, bladder, bowel or other surgery. Your doctor will provide you with a permanent care to carry describing this precaution. IMPORTANT: * REMEMBER TO TAKE ASPIRIN, 81 MG, TWICE DAILY FOR 4 WEEKS UNLESS OTHERWISE DIRECTED. THIS IS YOUR BLOOD THINNER. * HIGH RISK PATIENTS MAY BE PRESCRIBED A STRONGER BLOOD THINNER. THIS WILL BE PROVIDED AT DISCHARGE. * CALL IF INCREASED PAIN, REDNESS, DRAINAGE OR FEVER GREATER THAT 101. * WEAR GEORGES HOSE 20 HOURS PER DAY FOR 2 WEEKS. * YOLANDA Dressing - This is a large suction dressing covering your incision. This will help pull any excess drainage from the wound and allow your incision to heal properly. You may shower with this if you can keep the unit outside of the shower. If any bleeding or leakage is noted please call your doctor's office. This will remain on your incision for 7 days and then should be removed. This can be done yourself or by the home nursing staff if applicable. The entire unit is disposable once removed. Once removed, keep incision clean and dry. If redness or drainage is noted, please call your surgeon. . * ONCE THE YOLANDA DRESSING IS REMOVED, PLEASE FOLLOW WOUND CARE INSTRUCTIONS BELOW. * DERMABOND Prineo- This is a mesh tape dressing that is covered with glue. It should remain in place until the incision is properly healed, usually 10-14 days. This dressing is designed to naturally slough off. You may trim the excess mesh tape as it peels off. Incision may be briefly wet in a shower. Dry immediately by blotting with a clean, dry towel. Do not bath or swim until instructed by your doctor. Do not scratch, rub, or pick at the dressing. Do not apply any topical ointments or lotions until dressing is completely removed and/or instructed by your doctor. There may be a small piece of suture material at one end of your incision. Do not pull or trim this. If it is bothersome or catching on clothing, you may cover it with a band-aid. FOLLOW UP VISIT: If appointment is not already scheduled: Please call [facility] to make a follow-up appointment for 2 weeks after your surgery at . Stand-Alone Forms: My [employer], Smoking Cessation Medications and DC Order Prescriptions: New aspirin [Ecotrin Low Strength] 81 mg tablet,delayed release (DR/EC) 81 mg PO BID 30 Days Qty: 60 0RF acetaminophen 500 mg capsule 1,000 mg PO Q8H 14 Days Qty: 84 0RF polyethylene glycol 3350 [Miralax] 17 gram powder in packet 17 g PO DAILY PRN (Reason: constipation) Qty: 5 0RF acetaminophen [Tylenol Extra Strength] 500 mg Tablet 1,000 mg PO Q8 14 Days Qty: 84 0RF aspirin 81 mg Tablet,Delayed Release (Dr/Ec) 81 mg PO BID 30 Days Qty: 60 0RF cefadroxil 500 mg capsule 500 mg PO BID Qty: 28 1RF oxycodone 5 mg tablet 5 mg PO Q4H MDD 6 PRN (Reason: pain) Qty: 30 0RF Continued atorvastatin 20 mg Tablet 20 mg PO QAM citalopram 10 mg Tablet 10 mg PO QAM cyanocobalamin (vitamin B-12) 500 mcg Tablet 500 mcg PO QAM lisinopril 10 mg Tablet 10 mg PO QAM docusate sodium [Stool Softener] 100 mg Capsule 100 mg PO Q2D gabapentin 300 mg Capsule 600 mg PO HS estradiol 0.01 % (0.1 mg/gram) Cream 1 appful VAGINAL Q2D fiber Capsule 1 cap PO WM cholecalciferol (vitamin D3) [Vitamin D3] 25 mcg (1,000 unit) Tablet 25 mcg PO QAM Probiotic 3 billion cell Capsule 3,000 mmu cells PO QAM Rx Instructions: administer with a meal Discontinued meloxicam [Mobic] 7.5 mg Tablet 7.5 mg PO QAM Discharge Orders: Discharge Order (Routine); Ordered 08/10/22 Ordered By: Sathish Zuleta Admission Data Admit Date/Time: 08/08/22 10:28 Attending Provider: Mansoor Ley Admit Provider: Mansoor Ley Primary Care Provider: Too Knapp Other Providers: Ronen [facility] ; Abigail Lacy Other Interventions: Discharge Summary Assessment (RN) Last Done: 08/10/22 12:53
== END 2022-08-10 13:33 | disposition home health service (06) ==
LOC: ASU 05:37 → PACUINP 05:37 → 3E 13:30